=== PATIENT | female | born 1985 | race Caucasian/White ===

== ENCOUNTER 2018-08-13 10:27 | Emergency (ER) | payer MEDICAID ==
[2018-08-13] MEDS: FAMOTIDINE 20 MG TAB PO (11:29)
[2018-08-13] MEDS: predniSONE 20 MG TAB PO (11:29)
== END 2018-08-13 11:40 | disposition home or self-care (01) ==
LOC: FTE 10:27
DX: L50.9 Urticaria, unspecified (principal); T78.1XXA Other adverse food reactions, not elsewhere classified, initial encounter
CPT/HCPCS: 99283; J7512

== ENCOUNTER 2018-10-02 21:12 | Emergency (ER) | payer MEDICAID ==
[2018-10-02] MEDS: ACETAMINOPHEN 325 MG TAB PO (22:08)
== END 2018-10-02 23:38 | disposition home or self-care (01) ==
LOC: FTE 21:12
DX: S33.5XXA Sprain of ligaments of lumbar spine, initial encounter (principal); V49.50XA Passenger injured in collision with unspecified motor vehicles in traffic accident, initial encounter
CPT/HCPCS: 72100; 81025; 99283-25